=== PATIENT | male | born 1970 | race Caucasian/White ===

== ENCOUNTER 2021-09-18 17:12 | Emergency (ER) | payer OTHER, SELFPAY ==
--- NOTE | ~2021-09-18 | XR_ITS ---
EXAMINATION: XR soft tissue neck EXAM DATE: 09/18/2021 19:11 INDICATION: Possible esophageal foreign body TECHNIQUE: Frontal and lateral projections of the neck. There is no prior study for comparison. FINDINGS: No radiopaque foreign bodies identified. The soft tissue is unremarkable. Mild cervical sp ondylosis. IMPRESSION: Unremarkable neck x-ray. Reviewed, dictated and finalized at location . IMPRESSION: Unremarkable neck x-ray.
[2021-09-18 17:38] VITALS: BP 144/90; PULSE 86; RESP 19; TEMP 36.2; O2SAT 99
--- NOTE | 2021-09-18 18:27 | ED.SKABFB ---
HPI - Skin/Abscess/Foreign Bdy General Chief complaint: Skin/Abscess/Foreign Body <Cristal Lopez APRN - Last Filed: 09/19/21 09:09> Stated complaint: possible foreign body to throat <Cristal Lopez APRN - Last Filed: 09/19/21 09:09> Time Seen by Provider: 09/18/21 18:18 <Cristal Lopez CAUSTIC STRENGTH INSPECTOR - Last Filed: 09/19/21 09:09> History of Present Illness HPI narrative: 50 y/o male presents to the ER for possible esophageal foreign body. He was lying on the couch and had a tobacco pouch in his cheek. He was drifting in and out of sleep. He thinks he may have swallowed a pouch but he feels like it is stuck in his throat. He points to his mid neck and says that it feels like it is stuck in that area. He has been able to drink water without difficulty. He has not had anything to eat since it happened. He says it has been about 3 hours now. He has not had any vomiting. <Cristal Lopze CAUSTIC STRENGTH INSPECTOR - Last Filed: 09/19/21 09:09> Related Data Allergies/Adverse reactions: Allergies Allergy/AdvReac Type Severity Reaction Status Date / Time fluphenazine Allergy Unknown Verified 12/24/16 12:10 haloperidol Allergy Unknown Verified 12/24/16 12:10 quetiapine Allergy Unknown Verified 12/24/16 12:10 risperidone Allergy Unknown Verified 12/24/16 12:10 morphine AdvReac Severe HEART Verified 12/24/16 12:10 PALPITATIONS ANTIDEPRESSANTS Allergy Mild Uncoded 12/15/16 07:40 psych meds Allergy Mild hallucinati Uncoded 08/13/16 15:48 ons <Cristal Lopez APRN - Last Filed: 09/19/21 09:09> Review of Systems Constitutional: Constitutional: Denies chills, Denies fatigue and Denies fever(s) <Cristal Lopez APRN - Last Filed: 09/19/21 09:09> Eyes: Eyes: Reports no additional eye complaints <Cristal Lopez APRN - Last Filed: 09/19/21 09:09> ENT: Reports as per HPI <Crsital Lopez CAUSTIC STRENGTH INSPECTOR - Last Filed: 09/19/21 09:09> Cardiovascular: Cardiovascular: Denies chest pain <Crsital Lopez CAUSTIC STRENGTH INSPECTOR - Last Filed: 09/19/21 09:09> Respiratory: Respiratory: Denies cough, Denies dyspnea and Denies wheezing <Cristal Lopez CAUSTIC STRENGTH INSPECTOR - Last Filed: 09/19/21 09:09> Gastrointestinal: Gastrointestinal: Denies abdominal pain, Denies diarrhea, Denies nausea and Denies vomiting <Cristal Lopez CAUSTIC STRENGTH INSPECTOR - Last Filed: 09/19/21 09:09> Genitourinary: Genitourinary: Reports no additional male genitourinary complaints <Cristal Lopez CAUSTIC STRENGTH INSPECTOR - Last Filed: 09/19/21 09:09> Musculoskeletal: Musculoskeletal: Reports no additional musculoskeletal complaints <Cristal Lopez CAUSTIC STRENGTH INSPECTOR - Last Filed: 09/19/21 09:09> Integumentary/Breasts: Skin/Breast: Reports system reviewed and no additional complaints, except as docu <Cristal Lopez CAUSTIC STRENGTH INSPECTOR - Last Filed: 09/19/21 09:09> Neurologic: Reports system reviewed and no additional complaints, except as documented <Cristal Lopez CAUSTIC STRENGTH INSPECTOR - Last Filed: 09/19/21 09:09> Psychiatric: Psychiatric: Reports no additional psychiatric complaints <Cristal Lopez CAUSTIC STRENGTH INSPECTOR - Last Filed: 09/19/21 09:09> Endocrine: Endocrine: Reports no additional endocrine complaints <Cristal Lopez CAUSTIC STRENGTH INSPECTOR - Last Filed: 09/19/21 09:09> Hematologic/Lymphatic: Hematologic/Lymphatic: Reports no additional hematologic/lymphatic complaints <Cristal Lopez CAUSTIC STRENGTH INSPECTOR - Last Filed: 09/19/21 09:09> Allergic/Immunologic: Allergic/Immunologic: Reports no additional allergic/immunologic complaints <Cristal Lopez CAUSTIC STRENGTH INSPECTOR - Last Filed: 09/19/21 09:09> Exam Const: General: no acute distress <Cristal Lopez CAUSTIC STRENGTH INSPECTOR - Last Filed: 09/19/21 09:09> Orientation/consciousness: patient oriented x3 <Cristal Lopez CAUSTIC STRENGTH INSPECTOR - Last Filed: 09/19/21 09:09> HENMT: Head: normal to inspection <Cristal Lopez APRN - Last Filed: 09/19/21 09:09> Eyes: Conjunctivae: conjunctivae normal <Cristal Lopez APRN - Last Filed: 09/19/21 09:09> Neck: Neck: normal visual inspection <Cristal Cadena
[2021-09-18 19:28] VITALS: BP 118/82; PULSE 72; RESP 16; O2SAT 95
--- NOTE | 2021-09-18 19:28 | PC.NURSE ---
Assuming care of pt.
[2021-09-18 21:14] VITALS: BP 120/64; PULSE 68; RESP 16; TEMP 37; O2SAT 99
== END 2021-09-18 21:18 | disposition home or self-care (01) ==
PROVIDERS: Emergency Provider Emergency Medicine; PCP Nurse Practitioner Family
DX: J02.9 Acute pharyngitis, unspecified (principal)
CPT/HCPCS: 70360; 99283

== ENCOUNTER 2022-03-22 18:01 | Emergency (ER) | payer OTHER, SELFPAY ==
[2022-03-22 18:11] VITALS: BP 128/73; PULSE 68; RESP 18; TEMP 36.3; O2SAT 98
--- NOTE | 2022-03-22 18:57 | ED.GENADULT ---
HPI - General Adult General Chief complaint: Unspecified Stated complaint: going through Nicotine withdrawal Time Seen by Provider: 03/22/22 18:45 History of Present Illness HPI narrative: Patient presents with what he suspects to be nicotine withdrawal, he states that he feels somewhat jittery, he had symptoms like this whenever he stops using nicotine products. He went from smoking cigarettes many years ago to using chewing tobacco, and noticed that it was really hurting his teeth, so he has been trying to quit. Related Data Allergies Allergy/AdvReac Type Severity Reaction Status Date / Time fluphenazine Allergy Unknown Other Verified 03/22/22 18:54 haloperidol Allergy Unknown Other Verified 03/22/22 18:54 quetiapine Allergy Unknown Other Verified 03/22/22 18:54 risperidone Allergy Unknown Other Verified 03/22/22 18:54 morphine AdvReac Severe HEART Verified 03/22/22 18:54 PALPITATIONS ANTIDEPRESSANTS Allergy Mild Other Uncoded 03/22/22 18:54 psych meds Allergy Mild hallucinati Uncoded 03/22/22 18:54 ons Review of Systems Review of Systems: CONST: No fever. HEENT: No sore throat C/V: Palpitations RESP: No cough GI: No abdominal pain : No dysuria. M/S: No joint pain. SKIN: No rash. NEURO: [No headache or focal numbness or weakness] PSYCH: Anxious PMFSH Past Medical History Medical History (Updated 03/22/22 @ 19:57 by Lynda Koch MD) Nicotine dependence Social History Social History (Updated 03/22/22 @ 19:57 by Lynda Koch MD) Smoking status: Former smoker Smokeless tobacco user: chewing tobacco Exam Narrative: EXAMINATION OF ORGAN SYSTEMS/BODY AREAS: Constitutional: Vital signs per nursing GENERAL:[No acute distress, non-toxic appearing.] HEAD: Normal with no signs of head trauma. EYES: EOMI, conjunctiva normal ENT: Hearing grossly intact LUNGS: Nonlabored breathing. HEART: [Regular rate and rhythm] ABD: Nondistended EXT: Normal range of motion SKIN: [No rashes or lesions.] NEURO: [Alert and oriented x 3. No gross focal sensory or strength deficits.] PSYCH: Normal affect Course Vital Signs Vital signs: Vital Signs Temperature 97.3 F L 03/22/22 18:11 Pulse Rate 68 03/22/22 18:11 Respiratory Rate 18 03/22/22 18:11 Blood Pressure 128/73 03/22/22 18:11 Pulse Oximetry 98 03/22/22 18:11 Oxygen Delivery Room Air 03/22/22 18:11 Temperature 97.3 F L 03/22/22 18:11 Pulse Rate 68 03/22/22 18:11 Respiratory Rate 18 03/22/22 18:11 Blood Pressure 128/73 03/22/22 18:11 Pulse Oximetry 98 03/22/22 18:11 Oxygen Delivery Room Air 03/22/22 18:11 Medical Decision Making MDM Narrative Medical decision making narrative: 51-year-old male presenting because he has been trying to quit. Chewing tobacco, and he is feeling like he usually does when he stopped smoking cigarettes, he would like a prescription for nicotine patches, this is ordered, I have asked him to follow-up with his primary care doctor and return for any further issues. He is well-appearing here with normal vital signs and have low concern for any serious medical issues. Vital Signs Vital Signs: Vital Signs Temperature 97.3 F L 03/22/22 18:11 Pulse Rate 68 03/22/22 18:11 Respiratory Rate 18 03/22/22 18:11 Blood Pressure 128/73 03/22/22 18:11 Pulse Oximetry 98 03/22/22 18:11 Oxygen Delivery Room Air 03/22/22 18:11 Temperature 97.3 F L 03/22/22 18:11 Pulse Rate 68 03/22/22 18:11 Respiratory Rate 18 03/22/22 18:11 Blood Pressure 128/73 03/22/22 18:11 Pulse Oximetry 98 03/22/22 18:11 Oxygen Delivery Room Air 03/22/22 18:11 Discharge Plan Discharge Clinical Impression: Nicotine dependence with withdrawal Patient Disposition: Home, Self-Care Condition: Stable Instructions: Antibiotic Form, Nicotine (Absorbed through the skin), How to Quit Using Smokeless Tobacco (ED) Additional Instructions: Please follow up with your doctor;
[2022-03-22] MEDS: NICOTINE (*PBKC) 14 MG PATCH 1 PATCH TRANSDERM (19:10)
== END 2022-03-22 19:17 | disposition home or self-care (01) ==
PROVIDERS: Emergency Provider Emergency Medicine; PCP Nurse Practitioner Family
DX: F17.223 Nicotine dependence, chewing tobacco, with withdrawal (principal)
CPT/HCPCS: 99283; A9270

== ENCOUNTER 2022-11-10 04:54 | Emergency (ER) | payer OTHER, SELFPAY ==
[2022-11-10 04:57] VITALS: BP 153/82; PULSE 82; RESP 17; TEMP 36; O2SAT 100
--- NOTE | 2022-11-10 05:17 | PC.NURSE ---
when patient is in room, he states he does not want to be here and wants to leave prior to being seen by a provider.
== END 2022-11-10 05:18 | disposition left against medical advice (07) ==
PROVIDERS: PCP Nurse Practitioner Family
DX: K08.89 Other specified disorders of teeth and supporting structures (principal)
CPT/HCPCS: 99199

== ENCOUNTER 2022-11-10 17:38 | Emergency (ER) | payer OTHER, SELFPAY ==
--- NOTE | ~2022-11-10 | CT_ITS ---
EXAMINATION: CT brain wo con DATE: 11/10/2022 21:02 INDICATION: Altered mental status. Schizophrenia. TECHNIQUE: Computed tomography (CT) of the head was performed without intravenous contrast. Sagittal and coronal reconstructions were performed. The mA was adjusted according to patient size. Iterative reconstruction technique was employed. The dose-length product was 681.00 mGy-cm. COMPARISON: None FINDINGS: Large amount of patient motion resulting in a portion of the central third of the brain to the level of the third ventricle not included within the field of imaging. No visualized cephalad third and cau evi third there is no acute intracranial hemorrhage, acute infarction or abnormal extra axial fluid c ollection. Visualized portion of the ventricles are normal and symmetric. No mass/mass effect. Comple te opacification of the right maxillary sinus with central calcification consistent with chronic tu al sinusitis. Additional mild mucosal thickening the left maxillary sinus. The mastoid air cells and visualized portions of the orbits are normal. IMPRESSION: 1. No acute intracranial process identified in the cephalad third and caudal third of the brain with central portion of the brain not imaged due to noncompliant patient with large amount of motion. 2. Likely chronic fungal sinusitis in the right maxillary sinus. Reviewed, dictated and finalized at location A. IMPRESSION: 1. No acute intracranial process identified in the cephalad third and caudal th ird of the brain with central portion of the brain not imaged due to noncomplia nt patient with large amount of motion. 2. Likely chronic fungal sinusitis in the right maxillary sinus.
[2022-11-10 17:40] VITALS: BP 143/93; PULSE 89; RESP 16; TEMP 36.8; O2SAT 100
--- NOTE | 2022-11-10 17:56 | ECG_ITS ---
Measurements Intervals [place] Rate: 100 P: 65 [place]: 142 QRS: 17 QRSD: 93 T: 52 QT: 357 QTc: 462 Interpretive Statements SINUS TACHYCARDIA DELAYED PRECORDIAL R/S TRANSITION BASELINE ARTIFACT- I, II, III, AVR, AVL, AVF, V1, V3 BORDERLINE ECG NO PREVIOUS ECG AVAILABLE FOR COMPARISON Electronically Signed On 11-10-2022 20:29:17 CDT by William Granger D.O.
--- NOTE | 2022-11-10 17:58 | ED.AMS ---
HPI - Altered Mental Status General Chief Complaint: Altered Mental Status <SHUBHAM Eckert Last Filed: 11/11/22 03:23> Stated Complaint: incoherent? <SHUBHAM Eckert Last Filed: 11/11/22 03:23> Time Seen by Provider: 11/10/22 17:39 <SHUBHAM Eckert Last Filed: 11/11/22 03:23> Source: patient, EMS and old records reviewed <SHUBHAM Eckert Last Filed: 11/11/22 03:23> Mode of arrival: EMS <SHUBHAM Eckert Last Filed: 11/11/22 03:23> Limitations: altered mental status and clinical condition <SHUBHAM Eckert Last Filed: 11/11/22 03:23> History of Present Illness HPI narrative: Patient is a 52 y/o female who presents to the ED via EMS with report of AMS. Per EMS report, they were called by [place] [employer] after patient was found wandering in an area of haque behind local businesses. Patient was not answering questions or cooperating with PD. He was unsure why he was in the haque. Patient unable to provide any information currently. When asked if he was using drugs today, he said I think so. He has been making random comments that are not appropriate to the conversation. He stated he cannot hide behind his shame, that is not possible, I feel fat, This place is trashy. EMS reported that patient has a history of schizophrenia, however I do not have the records of this. He does have numerous allergies reported to antipsychotic medications. Per records, patient was present in the ED around 5am this morning, c/o feeling dehydrated and that his teeth occasionally hurt. He decided to leave prior to being seen by the provider. <SHUBHAM Eckert Last Filed: 11/11/22 03:23> Related Data Allergies/Adverse Reactions: Allergies Allergy/AdvReac Type Severity Reaction Status Date / Time fluphenazine Allergy Unknown Other Verified 03/22/22 18:54 haloperidol Allergy Unknown Other Verified 03/22/22 18:54 quetiapine Allergy Unknown Other Verified 03/22/22 18:54 risperidone Allergy Unknown Other Verified 03/22/22 18:54 morphine AdvReac Severe HEART Verified 03/22/22 18:54 PALPITATIONS ANTIDEPRESSANTS Allergy Mild Other Uncoded 03/22/22 18:54 psych meds Allergy Mild hallucinati Uncoded 03/22/22 18:54 ons <Naty Le PA-C - Last Filed: 11/11/22 03:23> Review of Systems Review of Systems: ROS unobtainable: Yes unobtainable due to mental status <Naty Le PA-C - Last Filed: 11/11/22 03:23> PMFSH Past Medical History Medical History: Medical History Nicotine dependence <Naty Le PA-C - Last Filed: 11/11/22 03:23> Surgical History Surgical History: Surgical History (Updated 11/10/22 @ 17:59 by Naty Le PA-C) No pertinent past surgical history <Naty Le PA-C - Last Filed: 11/11/22 03:23> Social History Social History: Social History Smoking status: Former smoker Smokeless tobacco user: chewing tobacco Substance use type: unknown <Naty Le PA-C - Last Filed: 11/11/22 03:23> Exam Narrative: GENERAL: Confused, well-nourished, non-toxic, in no acute distress. HEAD: Normocephalic, atraumatic. NECK: Supple. No adenopathy, no masses. RESPIRATORY: Airway patent, respirations nonlabored. Clear to auscultation bilaterally, no rales, rhonchi, wheezing. CARDIOVASCULAR: Regular rate and rhythm without murmurs, rubs, or gallops. Radial pulses 2+ and equal bilaterally. ABDOMINAL: Soft, but mildly distended, no significant focal tenderness, no hepatosplenomegaly. Normoactive BS. MUSCULOSKELETAL: Moves all extremities. Strength/ROM intact without gross deformities. SKIN: Warm, dry, normal color. No rashes. Lack of body hair. NEURO: Alert, unable/unwilling to answer any tracee
[2022-11-10 17:59] LABS: Glucose Point of Care 108 mg/dl (65-105)
--- NOTE | 2022-11-10 18:16 | PC.NURSE ---
Call to CT by medical administrative technician d/t patient behavior. CT reports patient was uncooperative and exposed his penis to them. Patient taken back to room. EDP made aware.
[2022-11-10 18:29] LABS: Appearance Urine Clear (Clear); Bilirubin Urine Negative (Negative); Blood Urine Negative (Negative); Color Urine Yellow (Yellow); Glucose Urine UA Negative (Negative); Ketones Urine Trace mg/dL (Negative); Leukocyte Esterase Ur Negative LEU/UL (Negative); Nitrate Urine Negative (Negative); Protein Urine Negative (Negative); Specific Grav Ur 1.001 (1.001-1.035); Urobilinogen Urine 0.2 mg/dL (<2.0)
[2022-11-10 18:34] LABS: Basophils Percent Auto 0.3 % (0.2-1.2); Eosinophils Absolute Auto 0.1 K/mm3 (0-0.3); Eosinophils Percent Auto 0.5 % (0-4.4); Hematocrit 41.4 % (42.0-52.0); Hemoglobin 14.4 g/dL (14.0-18.0); Immature Granulocyte Absolute 0.03 K/mm3 (0.00-0.031); Immature Granulocyte Percent A 0.2 % (0-0.5); Lymphocytes Absolute Auto 2.77 K/mm3 (0.9-3.2); Lymphocytes Percent Auto 20.1 % (18.3-44.2); Mean Corpuscular HGB Conc 34.8 g/dl (32-36); Mean Corpuscular Hemoglobin 29.1 pg (26-34); Mean Corpuscular Volume 83.6 fl (80-100); Mean Platelet Volume 9.4 fl (7.4-10.4); Monocytes Absolute Auto 1.3 K/mm3 (0.1-0.6); Monocytes Percent Auto 9.7 % (2.6-8.5); Neutrophils Absolute Auto 9.5 K/mm3 (1.3-6.7); Neutrophils Percent Auto 69.2 % (45.5-73.1); Platelet Count Result 259 k/mm3 (150-375); Red Blood Count 4.95 M/mm3 (4.6-6.20); Red Cell Distribution Width 12.9 % (11.5-14.5); White Blood Count 13.8 K/mm3 (4.5-10.0)
[2022-11-10 18:38] LABS: Alanine Aminotransferase 24 U/L (6-50); Albumin Level 4.8 g/dL (3.5-5.1); Alkaline Phosphatase 75 U/L (38-126); Anion Gap 9 mmol/L (8-16); Aspartate Amino Transferase 35 U/L (17-59); Bilirubin,Total 1.8 mg/dL (0.2-1.3); Blood Urea Nitrogen 6 mg/dL (9-20); Calcium 9.4 mg/dL (8.4-10.2); Carbon Dioxide 26 mmol/L (22-30); Chloride 97 mmol/L (98-107); Creatine Kinase 752 U/L (55-170); Estimated Glomerular Filt Rate > 60; Glucose 98 mg/dL (65-110); Magnesium 1.9 mg/dL (1.6-2.3); Potassium 3.3 mmol/L (3.4-5.0); Sodium 132 mmol/L (137-145)
[2022-11-10 18:39] LABS: Acetaminophen < 10 ug/mL (10-30); Ethanol < 10 mg/dL (<10); Salicylate < 1.0 mg/dL (2-20)
[2022-11-10 18:40] LABS: Lactic Acid Reflex 1.4 mmol/L (0.7-2.0)
[2022-11-10 18:44] LABS: Add Urine Microscopic? NO
[2022-11-10 18:48] LABS: Amphetamine Screen Urine Negative (Negative); Barbiturate Screen Urine Negative (Negative); Benzodiazepines Screen Urine Negative (Negative); Cannabinoid Screen Urine Negative (Negative); Cocaine Screen Urine Negative (Negative); Methadone Screen Urine Negative (Negative); Opiate Screen Urine Negative (Negative); Phencyclidine Screen Urine Negative (Negative)
[2022-11-10] MEDS: SODIUM CHLORIDE 0.9% IV 1,000 ML 999 ML IV CONT (19:21)
[2022-11-10] MEDS: POTASSIUM CHLORIDE 20 MEQ TABLET 40 MEQ PO (20:35)
[2022-11-10 21:11] LABS: Influenza A QL RT-PCR Negative (Negative); Influenza B QL RT-PCR Negative (Negative); SARS-CoV-2 RNA PCR Negative (Negative)
[2022-11-11] MEDS: HALOPERIDOL LACTATE 5 MG/ML VIAL ×2 (00:22→05:47)
[2022-11-11] MEDS: SODIUM CHLORIDE 0.9% IV 1,000 ML 999 ML IV CONT ×2 (00:22→08:20)
[2022-11-11] MEDS: LORazepam INJ (*CRX) 2 MG/ML VIAL ×2 (00:22→05:46)
[2022-11-11 07:43] LABS: Creatine Kinase 821 U/L (55-170)
--- NOTE | 2022-11-11 12:47 | PC.NURSE ---
PT AGITATED BECAUSE CANNOT BE D/C. EXPLAINED PT IN ED WITH INVOLUNTARY ADMISSION PAPERWORK FILLED OUT. PT REPORTS HE IS NOT HOMICIDAL OR SUICIDAL AND DOESN'T WANT TO BE ADMITTED. SPOKE WITH LAUREN AT [facility] AND PT WILL BE REEVALUATED WITHIN THE HOUR. PT NOTIFIED AND SITTING ON EDGE OF BED, SECURITY OUTSIDE THE DOOR
== END 2022-11-11 14:40 ==
PROVIDERS: Emergency Medicine; Emergency Provider Physician Assistant; PCP Nurse Practitioner Family
DX: R41.82 Altered mental status, unspecified (principal); F22 Delusional disorders; Z20.822 Contact with and (suspected) exposure to COVID-19; R00.0 Tachycardia, unspecified
CPT/HCPCS: 36415; 70450; 80053; 80307; 81003; 82550; 82948; 83605; 83735; 85025; 87636; 93005; 96361; 96372; 96374; 96376; 99285; A9270; J1630; J2060; J7030